=== PATIENT | male | born 1950 | race Caucasian/White ===

== ENCOUNTER 2017-08-10 18:11 | Emergency (ER) | payer OTHER, BC ==
[2017-08-10 18:19] VITALS: BP 147/84; PULSE 77; TEMP 98.5
--- NOTE | 2017-08-10 21:01 | PDOC ---
History of Present Illness - General History Source: Patient Exam Limitations: No Limitations - History of Present Illness Initial Comments: 08/10/17 21:23 The patient is a 66 year old male, with a significant past medical history of hypertension, hypothyroidism, hepatitis C, and liver cirrhosis, who presents to the emergency department complaining of abdominal pain since approximately 22: 00 last night. The patient reports the pain is localized to the left abdomen and is nonradiating in nature. He reports his pain is constant and ranges from a 4-8/10. The patient denies any associated nausea, vomiting, diarrhea, or constipation. Patient reports his last bowel movement was this morning, which was normal. The patient reports his pain is alleviated when sitting or standing , and exacerbated lying down. He denies any changes in urine color, dysuria, hematuria, frequency, urgency, or flank pain. He denies any chest pain, shortness of breath, diaphoresis, or palpitations. He denies any fever or chills. He denies any recent travel or sick contacts. Allergies: NKDA Past Surgical History: None reported. Social History: Occasional ETOH use. Non smoker. No recreational drug use. PCP: Dr. Mari GI: Dr. Song <Andressa Parker - Last Filed: 08/11/17 01:52> <Adama Carcamo - Last Filed: 08/11/17 02:10> - General Chief Complaint: Pain Stated Complaint: SIDE PAIN Time Seen by Provider: 08/10/17 20:39 Past History <Andressa Parker - Last Filed: 08/11/17 01:52> - Past Medical History HTN: Yes Thyroid Disease: Yes - Suicide/Smoking/Psychosocial Hx Smoking History: Never smoked Hx Alcohol Use: No Drug/Substance Use Hx: No <Adama Carcamo - Last Filed: 08/11/17 02:10> - Past Medical History Allergies/Adverse Reactions: Allergies Allergy/AdvReac Type Severity Reaction Status Date / Time No Known Allergies Allergy Verified 08/10/17 18:19 Home Medications: Ambulatory Orders Amlodipine Besylate [Norvasc -] 5 mg PO DAILY 08/10/17 Levothyroxine Sodium [Levo-T] 0 mcg PO DAILY 08/10/17 Levofloxacin [Levaquin -] 500 mg PO DAILY #10 tablet 08/11/17 Metronidazole [Flagyl -] 500 mg PO Q4HWA #40 tablet 08/11/17 Tramadol HCl 50 mg PO TID #14 tablet MDD 3 08/11/17 Review of Systems - Review of Systems Able to Perform ROS?: Yes Comments:: 08/10/17 21:23 CONSTITUTIONAL: No fever, no chills, no fatigue EYES: No visual changes ENT: No ear pain, no sore throat CARDIOVASCULAR: No chest pain, no palpitations, no diaphoresis RESPIRATORY: No cough, no SOB GI: Yes: Left upper/lower quadrant pain. No nausea, no vomiting, no constipation , no diarrhea GENITOURINARY: No changes in urine color, dysuria, hematuria, frequency, urgency , or flank pain. MUSCULOSKELETAL: No back pain, no joint pain, no myalgias SKIN: No rash NEURO: No headache <Andressa Parker - Last Filed: 08/11/17 01:52> *Physical Exam - Vital Signs Last Vital Signs Temp Pulse Resp BP Pulse Ox 98.5 F 77 20 147/84 96 08/10/17 18:16 08/10/17 18:16 08/10/17 18:16 08/10/17 18:16 08/10/17 18:16 - Physical Exam Comments: 08/10/17 21:24 CONSTITUTIONAL: Well-appearing; well-nourished; in no apparent distress HEAD: Normocephalic; atraumatic EYES: PERRL; EOM intact ENMT: External appears normal; normal oropharynx NECK: Supple; non-tender; no cervical lymphadenopathy CARD: Normal S1, S2; no murmurs, rubs, or gallops RESP: Normal chest excursion with respiration; breath sounds clear and equal bilaterally; no wheezes, rhonchi, or rales ABD: Soft, non-distended; non-tender; no palpable organomegaly, no palpable hernias EXT: Normal ROM in all four extremities; non-tender to palpation; distal pulses intact SKIN: Warm, dry, no rash NEURO: No focal neurological deficiencies. <Andressa Parker - Last Filed: 08/11/17 01:52> - Vital Signs Last Vital Signs Temp Pulse Resp BP Pulse Ox 98.5 F 77 20 147/84 96 08/10/17 18:16 08/10/17 18:16 08/10/17 18:16 08/10/17 18:16 08/10/17 18:16 <Adama Carcamo - Last Filed: 08/11/17 02:10> Heart Score/ECG Review - ECG Intrepretation Comment:: 08/11/17 00:03 Vent Rate: 65 bpm IMPRESSION: Normal sinus rhythm. RSR' or QR pattern in V1 suggests right ventricular conduction delay. <Andressa Parker - Last Filed: 08/11/17 01:52> ED Treatment Course - LABORATORY CBC & Chemistry Diagram: 08/10/17 21:20 08/10/17 21:20 - RADIOLOGY Radiograph Interpretation: 08/11/17 01:48 EXAM: CT Abdomen and Pelvis INTERPRETED BY: Dr. Mcneill REVIEWED BY: Dr. Carcamo IMPRESSION: Diverticulosis sigmoid colon without acute diverticulitis. No bowel obstruction, colitis, free fluid or free air. Normal appendix. Unremarkable pancreas and kidneys. Cholelithiasis. Nodular liver contour, question cirrhosis. Splenomegaly. Subcentimeter splenic cyst or hemangioma. Enlarge prostate. <Andressa Parker - Last Filed: 08/11/17 01:52> - LABORATORY CBC & Chemistry Diagram: 08/10/17 21:20 08/10/17 21:20 <Adama Carcamo - Last Filed: 08/11/17 02:10> Medical Decision Making - Medical Decision Making 08/11/17 02:03 Patient is a well-appearing 66-year-old male who presents to the ER with atraumatic left lower quadrant pain. In the ER, patient is awake and alert, afebrile, nontoxic appearing. CBC/CMP/UA within normal limit. CT that and pelvis reveals no evidence of acute intra abdominal pathology. Colonic diverticulosis is noted. On reassessment, patient complains of minimal discomfort only and is able tolerate by mouth. I suspect mild clinical diverticulitis which is not appreciated on CT. Will treat patient with Levaquin and Flagyl by mouth with liquid diet, tramadol for pain and GI follow-up in 48- 72 hours. Patient safe for outpatient treatment and discharge. <Adama Carcamo - Last Filed: 08/11/17 02:10> *DC/Admit/Observation/Transfer - Attestations Scribe Attestion: 08/10/17 21:24 Documentation prepared by Andressa Parker, acting as medical receptionist biller for Adama Carcamo MD. <Andressa Parker - Last Filed: 08/11/17 01:52> - Attestations Physician Attestion: 08/11/17 02:03 The documentation was prepared by the scribe under my direct supervision. I have reviewed the documentation which correctly represents the findings, medical decision-making and critical action taken by me. <Adama Carcamo - Last Filed: 08/11/17 02:10> Diagnosis at time of Disposition: Abdominal pain Qualifiers: Abdominal location: left lower quadrant Qualified Code(s): R10.32 - Left lower quadrant pain Diverticulitis Qualifiers: Diverticulitis site: large intestine Diverticulitis bleeding: without bleeding Diverticulitis complication: without perforation or abscess Qualified Code(s): K57.32 - Diverticulitis of large intestine without perforation or abscess without bleeding - Discharge Dispostion Disposition: HOME Condition at time of disposition: Stable - Referrals Referrals: Priscila Mari MD [Primary Care Provider] - Valeriano Song MD [Staff Physician] - - Patient Instructions Printed Discharge Instructions: DI for Abdominal Pain-Adult, DI for Diverticulitis
[2017-08-10 21:25] LABS: BASOPHIL 0.5 % (0-2.0); EOSINOPHIL 2.4 % (0-4.5); MCH 31.9 pg (25.7-33.7); MCHC 35.3 g/dl (32.0-35.9); MEAN CELL VOLUME 90.3 fl (80-96); MEAN PLT VOLUME 9.2 fl (7.5-11.1); NEUTROPHILS 61.9 % (42.8-82.8); PLATELET COUNT 131 K/MM3 (134-434); RDW 13.3 % (11.9-15.9); WHITE BLOOD COUNT 7.2 K/mm3 (4.0-10.0)
[2017-08-10 21:39] LABS: INR 1.2 (0.82-1.09); PROTHROMBIN TIME (PATIENT) 13.3 SEC (9.98-11.88)
[2017-08-10 21:56] LABS: ALBUMIN 4.2 g/dl (3.4-5.0); ALK PHOS 80 U/L (45-117); ANION GAP 6 (8-16); BILIRUBIN,TOTAL 1.3 mg/dL (0.2-1.0); CO2 27 mmol/L (21-32); CREATININE 1.1 mg/dL (0.7-1.3); GLUCOSE,RANDOM 92 mg/dL (74-106); SGOT/AST 23 U/L (15-37); SGPT/ALT 35 U/L (12-78); TOT PROT 8.2 g/dl (6.4-8.2)
[2017-08-10 22:25] LABS: URINE APPEARANCE CLEAR; URINE BILIRUBIN NEGATIVE (NEGATIVE); URINE BLOOD NEGATIVE (NEGATIVE); URINE COLOR YELLOW; URINE GLUCOSE (UA) NEGATIVE (NEGATIVE); URINE KETONE NEGATIVE (NEGATIVE); URINE LEUK ESTERASE NEGATIVE (NEGATIVE); URINE NITRITE NEGATIVE (NEGATIVE); URINE PROTEIN NEGATIVE (NEGATIVE); URINE UROBILINOGEN NEGATIVE mg/dL (0.2-1.0)
[2017-08-11] MEDS ORDERED: metroNIDAZOLE 500 MG TABLET PO ONE (01:49)
[2017-08-11] MEDS ORDERED: LEVOFLOXACIN 500 MG TABLET (FP) PO ONE (01:49)
[2017-08-11] MEDS ORDERED: traMADol HCL 50 MG TABLET PO ONE (01:49)
[2017-08-11] MEDS ORDERED: traMADol HCL 50 MG TABLET ONE ×2 (01:51→01:54)
[2017-08-11] MEDS ORDERED: metroNIDAZOLE 250 MG TABLET ONE (01:52)
[2017-08-11] MEDS ORDERED: LEVOFLOXACIN 500 MG TABLET (FP) ONE (01:52)
--- NOTE | 2017-08-11 10:26 | EKG ---
Test Reason : Blood Pressure : / mmHG Vent. Rate : 065 BPM Atrial Rate : 065 BPM P-R Int : 206 ms QRS Dur : 106 ms QT Int : 412 ms P-R-T Axes : -01 002 064 degrees QTc Int : 428 ms NORMAL SINUS RHYTHM RSR' OR QR PATTERN IN V1 SUGGESTS RIGHT VENTRICULAR CONDUCTION DELAY MINIMAL VOLTAGE CRITERIA FOR LVH, MAY BE NORMAL VARIANT BORDERLINE ECG NO PREVIOUS ECGS AVAILABLE Confirmed by ARNULFO AVERY, SHARON ([id number]) on 08/11/2017 10:25:59 AM Referred By: Confirmed By:SHARON ARREDONDO MD
== END 2017-08-11 02:21 | disposition home or self-care (01) ==
LOC: JER 18:11
DX: R10.32 Left lower quadrant pain (principal); K57.32 Diverticulitis of large intestine without perforation or abscess without bleeding
CPT/HCPCS: 36415; 74177-TC; 80053; 81003; 83690; 85025; 85610; 87086; 93005; 93010; 99283-25

== ENCOUNTER 2017-11-28 02:25 | Inpatient (IN) | payer OTHER, BC ==
[2017-11-28 02:44] VITALS: BMI 26.5
[2017-11-28] MEDS ORDERED: FAMOTIDINE 20 MG/50 ML IVPB 20 MG/50 ML MG IVPB ONE ×2 (03:40→03:51)
[2017-11-28] MEDS ORDERED: PANTOPRAZOLE SODIUM 40 MG in SODIUM CHLORIDE 100 ML IVPB ONE (03:40)
[2017-11-28] MEDS ORDERED: ONDANSETRON 4 MG/2 ML VIAL IVPUSH ONE (03:40)
--- NOTE | 2017-11-28 03:45 | PDOC ---
History of Present Illness - General Chief Complaint: Chest Pain Stated Complaint: CHEST PAIN Time Seen by Provider: 11/28/17 03:19 History Source: Patient Exam Limitations: No Limitations - History of Present Illness Initial Comments: 11/28/17 03:45 The patient is a 66M with a PMH of hypertension, hypothyroidism, hepatitis C, and liver cirrhosis who presents to the ED with complaints of CP since 2100 yesterday evening. The patient states that he ate hot chicken wings and immediately began feeling GERD-like heartburn which has not relented even after the use of antacids. He is complaining of constant, achy pain which is retrosternal and radiating down to his abdomen. Nothing makes the pain better, including the antacids that he tried. He vomited once after the onset of the pain. Past History - Past Medical History Allergies/Adverse Reactions: Allergies Allergy/AdvReac Type Severity Reaction Status Date / Time No Known Allergies Allergy Verified 11/28/17 02:42 Home Medications: Ambulatory Orders Amlodipine Besylate [Norvasc -] 5 mg PO DAILY 08/10/17 Levothyroxine Sodium [Levo-T] 25 mcg PO DAILY 08/10/17 HTN: Yes Thyroid Disease: Yes - Suicide/Smoking/Psychosocial Hx Smoking History: Never smoked Have you smoked in the past 12 months: No Information on smoking cessation initiated: No Hx Alcohol Use: No Drug/Substance Use Hx: No Review of Systems - Review of Systems Able to Perform ROS?: Yes Comments:: 11/28/17 03:50 GENERAL/CONSTITUTIONAL: No fever or chills. No weakness. HEAD, EYES, EARS, NOSE AND THROAT: No change in vision. No ear pain or discharge. No sore throat. GASTROINTESTINAL: Positive for heartburn and vomiting. No nausea, diarrhea, constipation, or abdominal pain. GENITOURINARY: No dysuria, frequency, hematuria, or change in urination. CARDIOVASCULAR: Positive for chest achiness. No chest pain, palpitations, or lightheadedness. RESPIRATORY: No cough, wheezing, shortness of breath, or hemoptysis. MUSCULOSKELETAL: No joint or muscle swelling or pain. No neck or back pain. SKIN: No rash or lesions. NEUROLOGIC: No headache, numbness, tingling, weakness, loss of consciousness, or change in strength/sensation. ENDOCRINE: No increased thirst. No abnormal weight change. HEMATOLOGIC/LYMPHATIC: No anemia, easy bleeding, or history of blood clots. ALLERGIC/IMMUNOLOGIC: No hives or skin allergy. Is the patient limited Mexican proficient: No *Physical Exam - Vital Signs Last Vital Signs Temp Pulse Resp BP Pulse Ox 97.4 F L 82 18 179/77 99 11/28/17 02:42 11/28/17 02:42 11/28/17 02:42 11/28/17 02:42 11/28/17 02:42 - Physical Exam Comments: 11/28/17 03:51 GENERAL: Well developed, well nourished. Awake and alert. No acute distress. HEENT: Normocephalic, atraumatic. Hearing grossly normal. Moist mucous membranes. NECK: Supple. Full ROM. No JVD. CARDIOVASCULAR: Regular rate and rhythm. No murmurs, rubs, or gallops. PULMONARY: No evidence of respiratory distress. Lungs clear to auscultation bilaterally. No wheezing, rales or rhonchi. ABDOMINAL: Soft. Non-tender. Non-distended. No rebound or guarding. GENITOURINARY: No CVA tenderness bilaterally. MUSCULOSKELETAL: Normal range of motion at all joints. No bony deformities or tenderness. EXTREMITIES: No cyanosis. No clubbing. No edema. No calf tenderness. SKIN: Warm and dry. Normal capillary refill. No rashes. No jaundice. NEUROLOGICAL: Alert, awake, appropriate. Cranial nerves 2-12 intact. Normal speech. Gait is normal without ataxia. PSYCHIATRIC: Cooperative. Good eye contact. Appropriate mood and affect. Heart Score/ECG Review #1 ECG reviewed & interpreted by me at: 03:52 General ECG Interpretation: Sinus Rhythm, Normal Rate, Normal Intervals, No acute ischemic changes Compared to previous ECG there are: No significant change 11/28/17 03:54 NSR Rate 75 QRS 94 QTc 435 ED Treatment Course - LABORATORY CBC & Chemistry Diagram: 11/28/17 04:00 11/28/17 04:00 Medical Decision Making - Medical Decision Making 11/28/17 03:55 The patient is a 66M with a PMH of HTN and liver cirrhosis who presents to the ED with 6+ hours of GERD-like CP. This CP is atypical as it came on after food and has been constant and achy. EKG is NSR. Will send cardiac profile and basic labs including a lipase. 11/28/17 06:00 Labs WNL. CKMB elevated. Pt complaining of returning CP. Repeat trops at 0800. 11/28/17 06:43 Pt signed out to day team. *DC/Admit/Observation/Transfer - Referrals Referrals: Priscila Mari MD [Primary Care Provider] - - Patient Instructions - Post Discharge Activity
[2017-11-28] MEDS ORDERED: PANTOPRAZOLE SODIUM 40 MG VIAL ONE (03:51)
--- NOTE | 2017-11-28 03:51 | PDOC ---
Attending Attestation - Resident Resident Name: SusanaHal - ED Attending Attestation I have performed the following: I have examined & evaluated the patient, The case was reviewed & discussed with the resident, I agree w/resident's findings & plan - HPI HPI: 11/28/17 03:57 Pt vomited after eating out yeaterday. He drank alcohol last night, but is ot an alcoholic. He has had panrcreatitis in the past. He has HTN likey secondary to the pain. He has no pain with palpation of his abdomen. - Physicial Exam PE: 11/28/17 03:59 Pt has clear heart and lung selby; gassy abd pain. He has no flank pain. He states that the pain is excruciating, but he appears relaxed. Pt is not agitated or crying. His BP is elevated however. - Medical Decision Making 11/28/17 04:00 Labs normal; lipase and amylase needs to be drawn. Pt will be hydrated and he will be given morphine for the pain.
[2017-11-28] MEDS ORDERED: SODIUM CHLORIDE 0.9% 1000 ML INFUS.BAG IV ONE (03:57)
[2017-11-28 04:14] LABS: BASO % 0.4 % (0-2.0); EOS % 1.1 % (0-4.5); HEMATOCRIT 40.8 % (35.4-49); LYMPH % 15.7 % (8-40); MCH 30.9 pg (25.7-33.7); MCHC 34.3 g/dl (32.0-35.9); MEAN PLT VOLUME 8.9 fl (7.5-11.1); MONO % 4.7 % (3.8-10.2); NEUT % 78.1 % (42.8-82.8); PLATELET COUNT 147 K/MM3 (134-434); RBC 4.54 M/mm3 (4.00-5.60); RDW 13.3 % (11.9-15.9); WHITE BLOOD COUNT 9.3 K/mm3 (4.0-10.0)
[2017-11-28] MEDS ORDERED: morphine CARPU-JECT 10 MG/1 ML DISP.SYRIN ONE ×2 (04:17→12:00)
[2017-11-28] MEDS ORDERED: ONDANSETRON 4 MG/2 ML VIAL ONE ×2 (04:17→12:00)
[2017-11-28] MEDS ORDERED: morphine CARPU-JECT 2 MG/1 ML DISP.SYRIN IVPUSH ONE (04:25)
[2017-11-28 04:44] LABS: ALBUMIN 4.1 g/dl (3.4-5.0); ANION GAP 6 (8-16); BLOOD UREA NITROGEN 21 mg/dL (7-18); CALCIUM 8.8 mg/dL (8.5-10.1); CHLORIDE 102 mmol/L (98-107); CO2 29 mmol/L (21-32); CREATININE 1.1 mg/dL (0.7-1.3); GLUCOSE,RANDOM 136 mg/dL (74-106); POTASSIUM 4.3 mmol/L (3.5-5.1); SGOT/AST 23 U/L (15-37); SGPT/ALT 38 U/L (12-78); SODIUM 137 mmol/L (136-145); TOT PROT 8.2 g/dl (6.4-8.2)
[2017-11-28 04:47] LABS: ALK PHOS 93 U/L (45-117)
--- NOTE | 2017-11-28 07:22 | PDOC ---
*Physical Exam - Vital Signs Last Vital Signs Temp Pulse Resp BP Pulse Ox 97.4 F L 82 18 179/77 99 11/28/17 02:42 11/28/17 02:42 11/28/17 02:42 11/28/17 02:42 11/28/17 02:42 Patient's care signed out to me at the beginning of my shift. 66 YOM with h/o EtOH cirrhosis and current drinking, and known gallstones, who presents with GERD-like SXS epigastric pain, improved initially after GI cocktail but then symptoms recurred. May need pain control. ED Treatment Course - LABORATORY CBC & Chemistry Diagram: 11/28/17 04:00 11/28/17 04:00 - ADDITIONAL ORDERS Additional order review: Laboratory Results 11/28/17 11/28/17 04:00 04:00 Sodium 137 Potassium 4.3 Chloride 102 Carbon Dioxide 29 Anion Gap 6 L BUN 21 H Creatinine 1.1 Creat Clearance w eGFR > 60 Random Glucose 136 H D Calcium 8.8 Total Bilirubin 1.0 D AST 23 ALT 38 Alkaline Phosphatase 93 Creatine Kinase 201 Creatine Kinase Index 2.8 CK-MB (CK-2) 5.708 H Troponin I < 0.02 Total Protein 8.2 Albumin 4.1 Lipase 144 11/28/17 04:00 RBC 4.54 MCV 90.0 MCHC 34.3 RDW 13.3 MPV 8.9 Neutrophils % 78.1 D Lymphocytes % 15.7 D Monocytes % 4.7 Eosinophils % 1.1 Basophils % 0.4 - Medications Given in the ED: ED Medications Discontinued Medications Generic Name Dose Route Start Last Admin Trade Name Juvencioq PRN Reason Stop Dose Admin Pantoprazole Sodium 40 mg/ 100 mls @ 200 mls/hr 11/28/17 03:40 11/28/17 04:06 Sodium Chloride IVPB 11/28/17 04:09 200 mls/hr ONCE ONE Administration Famotidine/Sodium Chloride 20 mg in 50 mls @ 100 mls/hr 11/28/17 03:40 04:05 Pepcid 20 Mg Premixed Ivpb - IVPB 11/28/17 04:09 100 mls/hr ONCE ONE Administration Morphine Sulfate 2 mg 11/28/17 04:25 11/28/17 04:26 Morphine Injection - IVPUSH 11/28/17 04:26 2 mg NOW ONE Administration Ondansetron HCl 4 mg 11/28/17 03:40 11/28/17 04:25 Zofran Injection IVPUSH 11/28/17 03:41 4 mg ONCE ONE Administration Sodium Chloride 1,000 ml 11/28/17 03:57 11/28/17 04:06 Normal Saline - IV 11/28/17 03:58 1,000 ml ONCE ONE Administration Medical Decision Making - Medical Decision Making 11/28/17 07:48 Patient c/o increasing epigastric pain. Maalox ordered. Repeat cardiac profile will be drawn. May opt to do RUQ US despite negative Henning's sign given known h/o gallstones. 11/28/17 08:31 Patient reports somewhat improved pain after Maalox. On exam he does have medial RUQ ttp which is mild. Patient reports 2-3 weeks ago had an abdominal US showing GB stones with one stone in GB neck obstructing. Had little pain at that time and the US was actually ordered for an entirely different reason (Pt states diverticulitis). Ordered is US abdomen limited r/o cholecystitis/choledocholithiasis. *DC/Admit/Observation/Transfer Diagnosis at time of Disposition: Intractable abdominal pain Cholelithiasis Qualifiers: Cholelithiasis location: gallbladder Cholecystitis presence: with cholecystitis Cholecystitis acuity: unspecified acuity Biliary obstruction: without biliary obstruction Qualified Code(s): K80.00 - Calculus of gallbladder with acute cholecystitis without obstruction - Discharge Dispostion Condition at time of disposition: Guarded Admit: Yes - Referrals - Patient Instructions - Post Discharge Activity
[2017-11-28] MEDS ORDERED: MAG HYDROX/AL HYDROX/SIMETH 30 ML UNIT-DOSE CUP PO ONE (07:45)
[2017-11-28] MEDS ORDERED: MAG HYDROX/AL HYDROX/SIMETH 30 ML UNIT-DOSE CUP ONE (07:48)
[2017-11-28] MEDS ORDERED: ONDANSETRON 4 MG/2 ML VIAL IVPUSH PRN (11:54)
[2017-11-28] MEDS: SODIUM CHLORIDE 1,000 ML IV SCH ×2 (12:09→14:23)
[2017-11-28] MEDS ORDERED: morphine CARPU-JECT 10 MG/1 ML DISP.SYRIN IVPUSH ONE (12:15)
--- NOTE | 2017-11-28 12:16 | HP ---
Admitting History and Physical - Admission Chief Complaint: diffuse chest, abdominal pain History of Present Illness: This is 66 year old male with pmhx of HTN, Hypothyroidism, Hep C (treated 6 years ago), Gout, diverticulosis presented to the ED with worsening chest and abdominal pain. The patient states last night around 9pm he started have lower chest/abdominal pain thinking it was acid reflex. The pain then moved to the right and was worsening after continued hours and he came to the ED. The pain is now LUQ, he did have some nausea, no vomiting. After his hospital stay in 2016 where he was found to have a acute on chronic diverticulitis he then follow up in with his PCP he had an abdominal US, while waiting for the results to be review with GI Dr. Song. Currently denies chest pain, sob, n/v, lower ext swelling, urinary changes, bowel changes, fever, chills. Of note, 11/22/[address] Mckinney for L knee aspiration, no complications, swelling to knee improved per pt History Source: Patient Limitations to Obtaining History: No Limitations - Past Medical History Cardiovascular: Yes: HTN Hepatobiliary: Yes: Hepatitis C (treated 6 years ago) Rheumatology: Yes: Gout Endocrine: Yes: Hypothyroidism - Past Surgical History Additional Past Surgical History: L knee aspiration with Dr. Mckinney 11/22/2017 - Smoking History Smoking history: Never smoked Have you smoked in the past 12 months: No - Alcohol/Substance Use Hx Alcohol Use: Yes Number of Drinks Daily: 3 History of Substance Use: reports: Cocaine - Social History Usual Living Arrangement: Yes: With Spouse ADL: Independent Occupation: retired social services aide History of Recent Travel: No Home Medications - Allergies Allergies/Adverse Reactions: Allergies Allergy/AdvReac Type Severity Reaction Status Date / Time No Known Allergies Allergy Verified 11/28/17 02:42 - Home Medications Home Medications: Ambulatory Orders Amlodipine Besylate [Norvasc -] 5 mg PO DAILY 08/10/17 Levothyroxine Sodium [Levo-T] 25 mcg PO DAILY 08/10/17 Review of Systems - Review of Systems Constitutional: reports: No Symptoms Eyes: reports: No Symptoms HENT: reports: No Symptoms Neck: reports: No Symptoms Cardiovascular: reports: Chest Pain Respiratory: reports: No Symptoms Gastrointestinal: reports: Abdominal Pain, Nausea Genitourinary: reports: No Symptoms Musculoskeletal: reports: No Symptoms Integumentary: reports: No Symptoms Neurological: reports: No Symptoms Endocrine: reports: No Symptoms Hematology/Lymphatic: reports: No Symptoms Psychiatric: reports: No Symptoms Physical Examination Vital Signs: Vital Signs Temperature 97.4 F L 11/28/17 02:42 Pulse Rate 63 11/28/17 09:00 Respiratory Rate 20 11/28/17 09:00 Blood Pressure 160/85 11/28/17 09:00 O2 Sat by Pulse Oximetry (%) 97 11/28/17 09:00 Constitutional: Yes: Moderate Distress Eyes: Yes: Conjunctiva Clear HENT: Yes: Atraumatic Neck: Yes: Supple Cardiovascular: Yes: Regular Rate and Rhythm, S1, S2 Respiratory: Yes: Regular, Other (scattered basilar crackles) Gastrointestinal: Yes: Normal Bowel Sounds, Soft, Tenderness (LUQ) Renal/: Yes: WNL Musculoskeletal: Yes: Other (L knee swelling- improved per pt after aspiration) Extremities: Yes: WNL Edema: No Integumentary: Yes: WNL Neurological: Yes: Alert, Oriented, Cran Nerves II-XII Intact Psychiatric: Yes: Alert, Oriented Labs: CBC, BMP 11/28/17 04:00 11/28/17 04:00 Imaging - Results Ultrasound: Report Reviewed (large non mobile gallstone in gallbladder neck 2.6cm w/ sludge, w/o thickening, no acute cholecystitis) Problem List - Problems (1) Gallstone Code(s): K80.20 - CALCULUS OF GALLBLADDER W/O CHOLECYSTITIS W/O OBSTRUCTION (2) Cholelithiasis Code(s): K80.20 - CALCULUS OF GALLBLADDER W/O CHOLECYSTITIS W/O OBSTRUCTION Qualifiers: Cholelithiasis location: gallbladder Cholecystitis presence: with cholecystitis Cholecystitis acuity: unspecified acuity Biliary obstruction: without biliary obstruction Qualified Code(s): K80.00 - Calculus of gallbladder with acute cholecystitis without obstruction (3) Intractable abdominal pain Code(s): R10.9 - UNSPECIFIED ABDOMINAL PAIN (4) Abdominal pain Code(s): R10.9 - UNSPECIFIED ABDOMINAL PAIN Qualifiers: Abdominal location: left lower quadrant Qualified Code(s): R10.32 - Left lower quadrant pain Assessment/Plan Assessment: 66 year old male with htn, hypothyroidism, gout, admitted with intractable abdominal pain/biliary colic Plan: 1. Gallstone bladder neck stone - No leukocytosis, fever - NPO - Morphine 4mg now - Morphone 2mg 4 prn - NS 75cc/hr - Surgery consult 2. HTN - Elevated, likely due to pain - Will monitor - Norvas 5mg daily 3. Hypothyroid - Synthroid 25mcg daily 4. DVT - SCDs 5. Hep C - Treated w/ Dr. Song 6 years ago Visit type - Emergency Visit Emergency Visit: Yes ED Registration Date: 11/28/17 Care time: The patient presented to the Emergency Department on the above date and was hospitalized for further evaluation of their emergent condition. - New Patient This patient is new to me today: Yes Date on this admission: 11/28/17 - Critical Care Critical Care patient: No
--- NOTE | 2017-11-28 12:21 | EKG ---
Test Reason : Blood Pressure : / mmHG Vent. Rate : 075 BPM Atrial Rate : 075 BPM P-R Int : 200 ms QRS Dur : 094 ms QT Int : 390 ms P-R-T Axes : 038 026 073 degrees QTc Int : 435 ms NORMAL SINUS RHYTHM NORMAL ECG WHEN COMPARED WITH ECG OF 10-AUG-2017 23:39, NO SIGNIFICANT CHANGE WAS FOUND Confirmed by EULALIO BUI MD ([id number]) on 11/28/2017 12:21:36 PM Referred By: Confirmed By:EULALIO BUI MD
[2017-11-28] MEDS ORDERED: amLODIPine BESYLATE 5 MG TABLET (FP) PO SCH (12:36)
--- NOTE | 2017-11-28 19:58 | CONSULT ---
- Consultation REQUESTING PROVIDER: Marie GLUE CLAMP OPERATOR CONSULT REQUEST: We have been asked to surgically evaluate this patient for ( specify). PCP:Purvi Salazar HISTORY OF PRESENT ILLNESS: KUSH who is a 66 y/o male w/known cholelithiaisi who presented to the ER w?post prandial epigastric and RUQ sharp unrelenting abdominal pain w/associated nausea w/o vomiting; it interfered w/his ADL and he came for evaluation; he received MSO4 in the ER w/relief; he denies dark urine and/or light stools; NOC. PMHx: HepC; diverticulosis; hypertensiom; hypothyroid PSHx: none Home Medications Medication Instructions Recorded Amlodipine Besylate [Norvasc -] 5 mg PO DAILY 08/10/17 Levothyroxine Sodium [Levo-T] 25 mcg PO DAILY 08/10/17 Saw Gordon Frt/Phytosterol 2 1 each PO DAILY 11/28/17 [Prostate Sr Softgel] Allergies Allergy/AdvReac Type Severity Reaction Status Date / Time No Known Allergies Allergy Verified 11/28/17 02:42 PHYSICAL EXAM: GENERAL: Awake, alert, and fully oriented, in no acute distress. HEAD: Normal with no signs of trauma. EYES: sclera anicteric, conjunctiva clear. NECK: Normal ROM, supple without lymphadenopathy, JVD, or masses. ABDOMEN: Soft, nontender, not distended, normoactive bowel sounds, no guarding, no rebound, no masses. No organomegaly. No hernias; no scars. MUSCULOSKELETAL: Normal ROM at all joints. No bony deformities or tenderness. No CVA tenderness. UPPER EXTREMITIES: 2+ pulses, warm, well-perfused. No cyanosis. Cap refill <2 seconds. No peripheral edema. LOWER EXTREMITIES: 2+ pulses, warm, well-perfused. No calf tenderness. No peripheral edema. NEUROLOGICAL: Normal speech, gait not observed. PSYCH: Cooperative. Good eye contact. Appropriate mood and affect. SKIN: Warm, dry, normal turgor, no rashes or lesions noted. Vital Signs Temperature 98.6 F 11/28/17 18:48 Pulse Rate 68 11/28/17 18:48 Respiratory Rate 18 11/28/17 18:48 Blood Pressure 166/84 11/28/17 18:48 O2 Sat by Pulse Oximetry (%) 97 11/28/17 13:10 Lab Results WBC 9.3 K/mm3 (4.0-10.0) 11/28/17 04:00 RBC 4.54 M/mm3 (4.00-5.60) 11/28/17 04:00 Hgb 14.0 GM/dL (11.7-16.9) 11/28/17 04:00 Hct 40.8 % (35.4-49) 11/28/17 04:00 MCV 90.0 fl (80-96) 11/28/17 04:00 MCHC 34.3 g/dl (32.0-35.9) 11/28/17 04:00 RDW 13.3 % (11.9-15.9) 11/28/17 04:00 Plt Count 147 K/MM3 (134-434) 11/28/17 04:00 Sodium 137 mmol/L (136-145) 11/28/17 04:00 Potassium 4.3 mmol/L (3.5-5.1) 11/28/17 04:00 Chloride 102 mmol/L (98-107) 11/28/17 04:00 Carbon Dioxide 29 mmol/L (21-32) 11/28/17 04:00 Anion Gap 6 (8-16) L 11/28/17 04:00 BUN 21 mg/dL (7-18) H 11/28/17 04:00 Creatinine 1.1 mg/dL (0.7-1.3) 11/28/17 04:00 Random Glucose 136 mg/dL (74-106) H D 11/28/17 04:00 Calcium 8.8 mg/dL (8.5-10.1) 11/28/17 04:00 Imaging w/u reviewed as well as previous w/u. IMP: biliary colic requiring narcotics for control. PLAN: Admit; NPO;IVF; d/w him lap claribel possible open as definitive tx. which he requests and he is amenable to; r/b/t/a/'s d/w him; for OR 11/29/17. Zane Smith MD FACS Visit type - Case Type Case Type: ED Admission - Emergency Emergency Visit: Yes ED Registration Date: 11/28/17 Care time: The patient presented to the Emergency Department on the above date and was hospitalized for further evaluation of their emergent condition. - New patient This patient is new to me today: Yes Date on this admission: 11/28/17 - Critical Care Critical Care patient: No
[2017-11-28] MEDS: morphine CARPU-JECT 10 MG/1 ML DISP.SYRIN IVPUSH PRN (20:14)
[2017-11-28 23:10] LABS: INR 1.2 (0.82-1.09); PROTHROMBIN TIME (PATIENT) 13.6 SEC (9.98-11.88)
[2017-11-29] MEDS: morphine CARPU-JECT 10 MG/1 ML DISP.SYRIN IVPUSH PRN (02:57)
[2017-11-29] MEDS ORDERED: LEVOTHYROXINE NA 25 MCG TABLET (FP) PO SCH (07:00)
[2017-11-29] MEDS: SODIUM CHLORIDE 1,000 ML IV SCH ×3 (07:05→16:55)
[2017-11-29 07:43] LABS: BASO % 0.4 % (0-2.0); EOS % 1.9 % (0-4.5); HEMATOCRIT 40.4 % (35.4-49); HEMOGLOBIN 13.8 GM/dL (11.7-16.9); LYMPH % 23.8 % (8-40); MCH 30.8 pg (25.7-33.7); MCHC 34.1 g/dl (32.0-35.9); MEAN CELL VOLUME 90.2 fl (80-96); MEAN PLT VOLUME 8.9 fl (7.5-11.1); NEUT % 65.9 % (42.8-82.8); PLATELET COUNT 153 K/MM3 (134-434); RBC 4.47 M/mm3 (4.00-5.60); RDW 13.2 % (11.9-15.9); WHITE BLOOD COUNT 8.6 K/mm3 (4.0-10.0)
[2017-11-29 07:52] LABS: ALBUMIN 3.8 g/dl (3.4-5.0); ANION GAP 8 (8-16); BLOOD UREA NITROGEN 17 mg/dL (7-18); CALCIUM 8.8 mg/dL (8.5-10.1); CHLORIDE 100 mmol/L (98-107); CO2 28 mmol/L (21-32); CREATININE 0.9 mg/dL (0.7-1.3); GLUCOSE,RANDOM 112 mg/dL (74-106); POTASSIUM 4.2 mmol/L (3.5-5.1); SGOT/AST 22 U/L (15-37); SGPT/ALT 32 U/L (12-78); SODIUM 136 mmol/L (136-145)
[2017-11-29 07:54] LABS: ALK PHOS 103 U/L (45-117); BILIRUBIN,TOTAL 1.5 mg/dL (0.2-1.0)
[2017-11-29] MEDS ORDERED: PANTOPRAZOLE SODIUM 40 MG VIAL IVPUSH SCH (10:00)
[2017-11-29] MEDS ORDERED: amLODIPine BESYLATE 5 MG TABLET (FP) PO SCH (10:00)
[2017-11-29] MEDS ORDERED: BUPIVACAINE HCL/PF 0.5% (5MG/ML) 10 ML VIAL ONE (10:31)
--- NOTE | 2017-11-29 10:52 | PN ---
Physical Exam: SUBJECTIVE: Patient seen and examined. He is eager for his procedure and would like to go home after. Pain is controlled OBJECTIVE: Vital Signs Period Temp Pulse Resp BP Sys/Jimenes Pulse Ox Last 24 Hr 98.1 F-98.6 F 65-75 16-20 140-166/62-86 97-98 PE Neuro: alert, awake, cn 2-12intact Pulm:CTAB CV: s1 s2 rrr no mrg Abd: soft, non distended, denies tenderness to palpation Ext: warm, no le edema Laboratory Results - last 24 hr 11/28/17 11/28/17 11/29/17 21:30 21:30 06:00 WBC 8.6 RBC 4.47 Hgb 13.8 Hct 40.4 MCV 90.2 MCH 30.8 MCHC 34.1 RDW 13.2 Plt Count 153 MPV 8.9 Neutrophils % 65.9 Lymphocytes % 23.8 D Monocytes % 8.0 Eosinophils % 1.9 Basophils % 0.4 PT with INR 13.60 H INR 1.20 H Sodium Potassium Chloride Carbon Dioxide Anion Gap BUN Creatinine Creat Clearance w eGFR Random Glucose Calcium Total Bilirubin AST ALT Alkaline Phosphatase Total Protein Albumin Blood Type A NEGATIVE Antibody Screen Negative 11/29/17 06:00 WBC RBC Hgb Hct MCV MCH MCHC RDW Plt Count MPV Neutrophils % Lymphocytes % Monocytes % Eosinophils % Basophils % PT with INR INR Sodium 136 Potassium 4.2 Chloride 100 Carbon Dioxide 28 Anion Gap 8 BUN 17 Creatinine 0.9 Creat Clearance w eGFR > 60 Random Glucose 112 H Calcium 8.8 Total Bilirubin 1.5 H D AST 22 ALT 32 Alkaline Phosphatase 103 Total Protein 8.0 Albumin 3.8 Blood Type Antibody Screen Active Medications Generic Name Dose Route Start Last Admin Trade Name Juvencioq PRN Reason Stop Dose Admin Amlodipine Besylate 5 mg 11/28/17 12:36 11/29/17 09:50 Norvasc - PO 5 mg DAILY MAY Administration Sodium Chloride 1,000 mls @ 75 mls/hr 11/28/17 12:15 11/29/17 07:05 Normal Saline - IV 75 mls/hr ASDIR MAY Administration Levothyroxine Sodium 25 mcg 11/29/17 07:00 11/29/17 06:54 Synthroid - PO 25 mcg AM MAY Administration Morphine Sulfate 2 mg 11/28/17 12:04 11/29/17 02:57 Morphine Injection - IVPUSH 2 mg Q4H PRN Administration PAIN Ondansetron HCl 4 mg 11/28/17 11:54 11/28/17 12:09 Zofran Injection IVPUSH 4 mg Q6H PRN Administration NAUSEA Pantoprazole Sodium 40 mg 11/29/17 10:00 11/29/17 09:50 Protonix Iv IVPUSH 40 mg DAILY MAY Administration Assessment: 66 year old male with htn, hypothyroidism, gout, admitted with intractable abdominal pain/biliary colic Plan: 1. Gallstone bladder neck stone - For lab claribel today in OR - NPO - NS 75cc/hr 2. HTN - Increase norvasc 10mg daily 3. Hypothyroid - Synthroid 25mcg daily 4. DVT - SCDs 5. Hep C - Treated w/ Dr. Song 6 years ago Problem List - Problems (1) Gallstone Code(s): K80.20 - CALCULUS OF GALLBLADDER W/O CHOLECYSTITIS W/O OBSTRUCTION (2) Cholelithiasis Code(s): K80.20 - CALCULUS OF GALLBLADDER W/O CHOLECYSTITIS W/O OBSTRUCTION Qualifiers: Cholelithiasis location: gallbladder Cholecystitis presence: with cholecystitis Cholecystitis acuity: unspecified acuity Biliary obstruction: without biliary obstruction Qualified Code(s): K80.00 - Calculus of gallbladder with acute cholecystitis without obstruction (3) Intractable abdominal pain Code(s): R10.9 - UNSPECIFIED ABDOMINAL PAIN (4) Abdominal pain Code(s): R10.9 - UNSPECIFIED ABDOMINAL PAIN Qualifiers: Abdominal location: left lower quadrant Qualified Code(s): R10.32 - Left lower quadrant pain Visit type - Emergency Visit Emergency Visit: Yes ED Registration Date: 11/28/17 Care time: The patient presented to the Emergency Department on the above date and was hospitalized for further evaluation of their emergent condition. - New Patient This patient is new to me today: No - Critical Care Critical Care patient: No
[2017-11-29] MEDS ORDERED: amLODIPine BESYLATE 10 MG TABLET (FP) PO SCH (11:00)
[2017-11-29] MEDS ORDERED: MIDAZOLAM HCL 2 MG/2 ML SINGLE DOSE VIAL ONE (11:07)
[2017-11-29] MEDS ORDERED: ceFAZolin SODIUM 1 GM VIAL IVPB ONE ×2 (11:20→11:21)
[2017-11-29] MEDS ORDERED: SODIUM CHLORIDE 0.9% P/F 10 ML VIAL IJ ONE (11:23)
[2017-11-29] MEDS ORDERED: ceFAZolin SODIUM 1 GM VIAL ONE (11:23)
[2017-11-29] MEDS ORDERED: GLYCOPYRROLATE 0.2 MG/1 ML VIAL ONE (11:28)
[2017-11-29] MEDS ORDERED: NEOSTIGMINE METHYLSULFATE 0.5 MG/ML - 10 ML MDV ONE (11:28)
[2017-11-29] MEDS ORDERED: PROPOFOL 20 ML ONE (11:29)
[2017-11-29] MEDS ORDERED: BUPIVACAINE HCL/PF (5 MG/ML) 30 ML VIAL IJ ONE ×2 (11:38→13:19)
[2017-11-29] MEDS ORDERED: ONDANSETRON 4 MG/2 ML VIAL IVPUSH PRN ×2 (12:00→16:16)
[2017-11-29] MEDS ORDERED: LACTATED RINGERS SOLUTION 1,000 ML IV SCH (12:00)
[2017-11-29] MEDS ORDERED: oxyCODONE HCL 5 MG TABLET PO PRN ×3 (12:00→13:49)
--- NOTE | 2017-11-29 13:35 | OP ---
Operative Note - Note: Operative Date: 11/29/17 Pre-Operative Diagnosis: cholelithiasis; chronic cholecystitis; biliary colic Operation: lap claribel Findings: acute cholecystitis Post-Operative Diagnosis: Other (acute cholecystitis; cholelithiasis) Surgeon: Zane Smith Delivery Tech: Dalia Montes Anesthesia: General Specimens Removed: gallbladder and contents Estimated Blood Loss (mls): 300 Drains & Tubes with Location: 10 mm IVETTE
--- NOTE | 2017-11-29 13:41 | SURG ---
Surgery Melter Supervisor Electric Arc Furnace Note Melter Supervisor Electric Arc Furnace: Dalia Montes PA-C Date of Service: 11/29/17 Diagnosis: cholelithiasis; chronic cholecystitis; biliary colic Procedure: tianna claribel I was present for the entirety of the operative procedure. For further detail, please refer to operative report. Visit type - Case Type Case Type: ED Admission - Emergency Emergency Visit: Yes ED Registration Date: 11/28/17 Care time: The patient presented to the Emergency Department on the above date and was hospitalized for further evaluation of their emergent condition. - New patient This patient is new to me today: Yes Date on this admission: 11/29/17
[2017-11-29] MEDS ORDERED: morphine CARPU-JECT 10 MG/1 ML DISP.SYRIN IVPUSH PRN (16:16)
[2017-11-29] MEDS ORDERED: PT OWN MED DRAWER 7, Y5N ONE (20:04)
[2017-11-29 20:43] LABS: HEMATOCRIT 37.7 % (35.4-49); HEMOGLOBIN 12.8 GM/dL (11.7-16.9); MCH 30.9 pg (25.7-33.7); MEAN CELL VOLUME 90.8 fl (80-96); MEAN PLT VOLUME 9.3 fl (7.5-11.1); PLATELET COUNT 164 K/MM3 (134-434); RBC 4.16 M/mm3 (4.00-5.60); RDW 13.3 % (11.9-15.9); WHITE BLOOD COUNT 8.8 K/mm3 (4.0-10.0)
[2017-11-30] MEDS: SODIUM CHLORIDE 1,000 ML IV SCH (06:36)
[2017-11-30] MEDS ORDERED: LEVOTHYROXINE NA 25 MCG TABLET (FP) PO SCH (07:00)
--- NOTE | 2017-11-30 08:12 | PN ---
Progress Note (short form) - Note Progress Note: Attending Surgeon POD #1 Tolerating liquid diet; wants to go home; no pain. abdomen-soft; flat and non tender e/f port sites; dressings c/d/i; IVETTE output noted; bloody h/h last PM noted IMP: doing well PLAN: Advance diet; monotor IVETTE output; check AM CBC; possible d/c later today. Zane Smith MD FACS
[2017-11-30 08:28] LABS: BASO % 0.1 % (0-2.0); EOS % 0.1 % (0-4.5); HEMATOCRIT 37.8 % (35.4-49); HEMOGLOBIN 12.8 GM/dL (11.7-16.9); LYMPH % 16.5 % (8-40); MCH 30.7 pg (25.7-33.7); MCHC 33.9 g/dl (32.0-35.9); MEAN CELL VOLUME 90.5 fl (80-96); MEAN PLT VOLUME 9.1 fl (7.5-11.1); NEUT % 75.3 % (42.8-82.8); PLATELET COUNT 153 K/MM3 (134-434); RBC 4.18 M/mm3 (4.00-5.60); RDW 13.1 % (11.9-15.9); WHITE BLOOD COUNT 10.5 K/mm3 (4.0-10.0)
--- NOTE | 2017-11-30 08:34 | PN ---
Progress Note (short form) - Note Progress Note: Post op day#1.S/P Lap cholecystectomy under GA uneventful.Patient stable.No any anesthesia related problem.Patient Dc from the anesthesia care.
[2017-11-30 09:12] LABS: CHLORIDE 105 mmol/L (98-107); POTASSIUM 4.5 mmol/L (3.5-5.1); SODIUM 138 mmol/L (136-145)
[2017-11-30 09:25] LABS: ALBUMIN 3.4 g/dl (3.4-5.0); ALK PHOS 84 U/L (45-117); ANION GAP 9 (8-16); BILIRUBIN,TOTAL 1.5 mg/dL (0.2-1.0); BLOOD UREA NITROGEN 17 mg/dL (7-18); CALCIUM 8.5 mg/dL (8.5-10.1); CO2 24 mmol/L (21-32); CREATININE 0.9 mg/dL (0.7-1.3); GLUCOSE,RANDOM 107 mg/dL (74-106); SGOT/AST 30 U/L (15-37); SGPT/ALT 38 U/L (12-78)
[2017-11-30] MEDS ORDERED: HEPARIN NA (PORCINE) 5,000 UNITS/ML 1ML VIAL SQ SCH (10:00)
[2017-11-30] MEDS ORDERED: PANTOPRAZOLE 40 MG TABLET (FP) PO SCH (10:00)
[2017-11-30] MEDS ORDERED: PANTOPRAZOLE SODIUM 40 MG VIAL IVPUSH SCH (10:00)
[2017-11-30] MEDS ORDERED: amLODIPine BESYLATE 10 MG TABLET (FP) PO SCH (10:00)
--- NOTE | 2017-11-30 12:11 | OP ---
DATE OF OPERATION: 11/29/2017 PREOPERATIVE DIAGNOSES: Cholelithiasis, chronic cholecystitis, and biliary colic. POSTOPERATIVE DIAGNOSES: Acute cholecystitis and cholelithiasis. PROCEDURE: Laparoscopic cholecystectomy. SURGEON: Zane Smith MD CHEMICAL PLANT MANAGER: Dalia Montes PA-C ANESTHESIA: General. OPERATIVE FINDINGS: There was a markedly inflamed gallbladder with adherent omentum. There was extreme nodularity of the liver consistent with previous history of hepatitis C infection. There was a large stone in the gallbladder, impacted in the neck, and the gallbladder was almost gangrenous in character with respect to the acute inflammation, and the rest of the findings were unremarkable. DESCRIPTION OF PROCEDURE: The patient was placed on the operating table in the supine position, and after the induction of general anesthesia, the patient's abdomen was prepped with ChloraPrep and draped in sterile fashion. A timeout was taken and the pneumoperitoneum established above the umbilicus using a Veress needle, and the abdomen was insufflated to an intraabdominal pressure of 15 mmHg. A 5-mm port was placed above the umbilicus. An additional 5-mm lateral port and a subxiphoid 12 -mm port were placed as well. The gallbladder was placed on cephalad and lateral traction, and adherent omentum was taken down using blunt dissection and electrocautery. The neck of the gallbladder was identified, and again using blunt dissection and electrocautery, the peritoneum over the medial and lateral aspect of the gallbladder neck was opened. The cystic duct was identified and skeletonized proximally and distally for length. The artery with an overlying lymph node was additionally skeletonized proximally and distally for length, and there was noted to be an anterior and posterior branch. A critical view of safety was taken, and then, the duct was clipped twice proximally and twice distally with large hemoclips and divided using the EndoShears. The branches of the artery were similarly clipped and divided. The gallbladder was then removed from the liver bed in a retrograde fashion using electrocautery. Prior to removal from the edge of the liver, hemostasis was checked for and noted to be good. The gallbladder was removed from the edge of the liver and placed in a specimen retrieval bag and brought out through the subxiphoid port. Pneumoperitoneum was re-established, and bleeding from the liver bed and from adherent omentum that had been taken down from the gallbladder was treated with electrocautery and pressure. Copious irrigation was carried out until the return was clear, and some oozing at the liver bed again was coagulated with electrocautery. Irrigation was carried out again, and then, a piece of Surgicel was placed in the liver bed. A 10-mm Jared-Glynn drain was placed in the hepatorenal fossa and brought out through one of the 5-mm port sites and secured to the skin there with 2-0 silk suture. Hemostasis was again verified, and then, the pneumoperitoneum was evacuated after all ports were removed under laparoscopic vision without evidence of bleeding from the port sites. All port sites were infiltrated with 0.50% Marcaine, and the defect at the subxiphoid port in the fascia was closed with a 0 Vicryl figure-of-8 suture. The skin edges were reapproximated with 4-0 Monocryl in a subcuticular continuous fashion, and the wounds dressed with Steri-Strips and Band-Aid dressings. The drain was connected to bulb self-suction and the patient aroused from general anesthesia and transferred to the postanesthesia care unit in stable condition, awake and alert. ESTIMATED BLOOD LOSS: 300 mL REPLACEMENTS: Crystalloid. DRAINS: One 10-mm Jared-Glynn. SPECIMEN: Gallbladder and contents to Pathology. I, Zane Smith MD, was physically present in the operating room from the time the patient was placed on the operating table until he was transferred to the postanesthesia care unit in my accompaniment. MD SONY Alcantar/[id number] MTDD
[2017-11-30 15:19] VITALS: BP 145/72; PULSE 80; TEMP 99.3
--- NOTE | 2017-12-01 14:59 | PATH ---
Surgical Pathology Report Patient Name: AMA MILES Med. Rec. #: [id number] /Age/Gender: 1950 (Age: 66) / M Account: [id number] Location: [facility] MED/SURG Taken: 11/29/2017 Received: 11/30/2017 Reported: 12/01/2017 Physicians: MD Purvi Lr, JENNIFER Specimen(s) Received GALLBLADDER Clinical History Cholelithiasis Final Diagnosis GALLBLADDER, CHOLECYSTECTOMY: CHRONIC CHOLECYSTITIS AND CHOLELITHIASIS. Electronically Signed Karl Espana M.D. Gross Description Received in formalin, labeled "gallbladder," is a 8.3 x 3.3 x 3.3 cm. gallbladder with a 0.2 cm. in length portion of cystic duct attached. The outer surface is gonzalez navarrete with a large defect and varies from smooth to shaggy. The lumen contains brown bile as well as a 3.5 cm in greatest dimension green, ovoid cholelith. The mucosa is gonzalez and eroded. The wall of the gallbladder ranges from 0.1-0.4 cm. in thickness. Mash Filter Cloth Changer sections are submitted in one cassette. DL/11/30/201711/30/2017
== END 2017-11-30 15:46 | disposition home or self-care (01) | DRG 419 ==
LOC: JER 02:25 → JERBED 11:11 → J8W 18:29
PROVIDERS: ADMIT Internal Medicine; ATTEND Nurse Practitioner Acute Care
PROC: 0FT44ZZ Resection of Gallbladder, Percutaneous Endoscopic Approach (ICD-10-PCS; principal; 2017-11-29 12:00)
DX: K80.00 Calculus of gallbladder with acute cholecystitis without obstruction (principal); I10 Essential (primary) hypertension; E03.9 Hypothyroidism, unspecified; B19.20 Unspecified viral hepatitis C without hepatic coma; K74.60 Unspecified cirrhosis of liver; M10.9 Gout, unspecified; K57.90 Diverticulosis of intestine, part unspecified, without perforation or abscess without bleeding
CPT/HCPCS: 36415; 71046-TC; 76705-TC; 80053; 82550; 82553; 83690; 84484; 85025; 85027; 85610; 86850; 86900; 86901; 88304-TC; 93005; 93010; 94760; 99284-25; J1644

== ENCOUNTER 2022-04-06 04:31 | Day surgery (SDC) | payer OTHER, BC ==
[2022-04-01 15:39] VITALS: BMI 26.2
[2022-04-06] MEDS ORDERED: oxyCODONE HCL 5 MG TABLET PO PRN (07:37)
[2022-04-06] MEDS ORDERED: PROMETHAZINE HCL 25 MG/1 ML VIAL IVPUSH PRN (07:37)
[2022-04-06] MEDS ORDERED: LACTATED RINGERS SOLUTION 1,000 ML IV SCH (07:45)
[2022-04-06] MEDS ORDERED: KETOROLAC TROMETHAMINE 30 MG/1 ML VIAL ONE (10:46)
[2022-04-06] MEDS ORDERED: ceFAZolin SODIUM 1 GM VIAL ONE (10:47)
[2022-04-06] MEDS ORDERED: FENTANYL CITRATE/PF 50 MCG/ML VIAL ONE (10:47)
[2022-04-06] MEDS ORDERED: LABETALOL HCL 5 MG/1 ML (100MG/20 ML VIAL) ONE (11:41)
[2022-04-06] MEDS ORDERED: ACETAMINOPHEN 500 MG TABLET (FP) PO PRN (12:54)
[2022-04-06] MEDS ORDERED: ONDANSETRON 4 MG/2 ML VIAL IVPUSH ONE (13:00)
[2022-04-06] MEDS ORDERED: ONDANSETRON 4 MG/2 ML VIAL ONE (13:01)
[2022-04-06] MEDS: METOCLOPRAMIDE HCL INJECTION 10 MG/2 ML VIAL IVPUSH ONE ×2 (13:45→14:45)
[2022-04-06 17:26] VITALS: BP 128/70; PULSE 67; TEMP 97.1
== END 2022-04-06 17:00 | disposition home or self-care (01) ==
LOC: JRADIR 04:31
PROVIDERS: ATTEND Urology
PROC: BT22ZZZ Computerized Tomography (CT Scan) of Left Kidney (ICD-10-PCS; 2022-04-06)
PROC: 0T513ZZ Destruction of Left Kidney, Percutaneous Approach (ICD-10-PCS; 2022-04-06)
PROC: 0TB13ZX Excision of Left Kidney, Percutaneous Approach, Diagnostic (ICD-10-PCS; principal; 2022-04-06 10:00)
DX: C64.2 Malignant neoplasm of left kidney, except renal pelvis (principal)
CPT/HCPCS: 50200; 50593; 77012; C2618; 87899; 88300-TC; 94760